=== PATIENT | male | born 1965 | race Caucasian/White ===

== ENCOUNTER 2024-12-06 08:16 | Emergency (ER) | payer OTHER, SELFPAY ==
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
[2024-12-06 08:28] VITALS: BP 141/95; PULSE 64; RESP 18; TEMP 36.9; O2SAT 100
--- OUTSIDE RECORDS SUMMARY | 2024-12-06 08:40 | XMS_ITS | Clinical Summary ---
Author Organization [facility] Address [address] [place] [address] Care Team Providers Care Gear Machine Operator General Name Role Phone Unavailable Primary Care Provider Unavailabl e Allergies Active Allergy Reactions Criticality Noted Date Comments Azithromycin Hives High 02/13/2019 Iodine Hives High 11/21/2008 Sulfa (Sulfonamide Antibiotics) Hives High 02/04 Medications predniSONE (DELTASONE) 10 mg tabletIndication s:Acute right-sided low back pain with right-sided sciatica Take 40 mg daily for 3 days then 30mg daily for 3 days then 20 mg daily for 3 days then 10 mg daily for 3 days 30 Tablet 10/16/2020 Active cyclobenzaprine (FLEXERIL) 10 mg tabletIndication s:Acute right-sided low back pain with right-sided sciatica Take 1 Tablet (10 mg) by mouth 3 times daily as needed for Spasm. 30 Tablet 10/16/2020 Active Active Problems No known active problems Social History Tobacco Use Types Packs/Day Years Used Date Smoking Tobacco: Never Sex and Gender Information Value Date Recorded Sex Assigned at Not on file Legal Sex Male 11:15 PM CDT Gender Identity Not on file Sexual Orientation Not on file Last Filed Vital Signs Vital Sign Reading Time Taken Comments Blood Pressure 159/103 10/16/2020 8:30 AM CDT Pulse 79 10/16/2020 8:30 AM CDT Temperature 36.8 C (98.3 F) 10/16/2020 8:30 AM CDT Respiratory Rate 16 10/16/2020 8:30 AM CDT Oxygen Saturation 98% 10/16/2020 8:30 AM CDT Inhaled Oxygen Concentration - - Weight 86.2 kg (190 lb) 10/16/2020 8:30 AM CDT Height 185.4 cm (6' 1) 10/16/2020 8:30 AM CDT Body Mass Index 25.07 10/16/2020 8:30 AM CDT Plan of Treatment Health Maintenance Due Date Last Done Comments DTAP/TDAP/TD VACCINES (1 - Tdap) 1984 HEPATITIS B VACCINES (1 of 3 - 19+ 3-dose series) 03/1985 COLORECTAL SCREENING 2010 Colorectal Cancer Screening 2010 FIT-DNA Q 3 years 2010 FIT/FOBT Q 1 year 2010 Flex Sig/CT Colonography Q 5 years 2010 ZOSTER VACCINE (1 of 2) 2015 INFLUENZA VACCINE (#1) 2024 Insurance CIGNA [id number]
--- OUTSIDE RECORDS SUMMARY | 2024-12-06 08:40 | XMS_ITS | Clinical Summary ---
Author Organization [address] Address [address] [place] [id number] Care Team Providers Care Mixing Place Supervisor Name Role Phone Aretha Sheth Primary Care Provider [phone] Barry Bernabe MD Unavailable [phone]- [phone] Allergies Active Allergy Reactions Criticality Noted Date Comments Atorvastatin Muscle pain Medium 07/17/2021 Azithromycin Hives High 02/13/2019 Iodinated Contrast Media Hives High 06/22/2021 Iodine Edema High 06/22/2021 Mold Eye irritation,Sneezing Low 07/17/2021 Sulfa (Sulfonamide Antibiotics) Hives High 06/22/2021 Medications sildenafiL (VIAGRA) 100 mg tabletIndication s:Erectile Dysfunction Take 1 tablet (100 mg total) by mouth as needed for erectile dysfunction 15 tablet 11 2 Active omeprazole (PriLOSEC) 20 mg capsuleIndicatio ns:Gastroesophag eal reflux disease, unspecified whether esophagitis present Take 1 capsule (20 mg total) by mouth 2 (two) times a day 60 capsule 2 Active Active Problems Problem Noted Date Diagnosed Date Tobacco use 06/22/2021 Esophageal reflux 06/22/2021 Hyperlipidemia, unspecified 06/22/2021 Assessment & Plan (07/17/2021 8:49 AM TRAVEL ADMINISTRATOR): Chronic and uncontrolled. Patient has an elevated ASCVD risk. Discussed with patient that it would be beneficial to help lower his cardiovascular risk to restart him on a statin. Patient voiced understanding of this. However, he would prefer to wait 6 months and recheck his cholesterol again. He is going to work hard on getting back into regular exercise and eating better. If there is no significant improvement after 6 months we can restart statin therapy. Will try pravastatin since atorvastatin caused muscle cramps. Patient was in agreement with this plan. Follow-up with me in 6 months. 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 Resolved Problems Problem Noted Date Diagnosed Date Resolved Date Pure hypercholesterolemia 11/21/2008 Immunizations Immunization Administration Dates Next Due Tdap 08/19/2022,12/03/2013 Surgical History Surgery Date Site/Laterality Comments EYE SURGERY 07/07/1972 - 07/06/1973 WRIST SURGERY 07/07/1990 - 07/06/1991 FRACTURE SURGERY 07/07/1996 - 07/06/1997 VASECTOMY 07/07/1997 - 07/06/1998 Medical History Medical History Date Comments GERD (gastroesophageal reflux disease) Asthma Family History Medical History Relation Name Comments Alzheimer's disease Father Omero Diabetes Father Omero Early Father Omero Hearing loss Father Omero Heart disease Father Omero Memory loss Father Omero Cancer Maternal Grandmother Laura Matt Memory loss Maternal Grandmother Laura Matt Alzheimer's disease Mother [place] Hearing loss Mother [place] Memory loss Mother [place] Miscarriages / Stillbirths Mother [place] No Known Problems Sister 1 Obesity Sister 2 Karolyn Relation Name Status Comments Father Omero Maternal Grandmother Laura Matt Mother [place] Sister 1 Alive Sister 2 Karolyn Social History Tobacco Use Types Packs/Day Years Used Date Smoking Tobacco: Every Day Cigarettes 1 33 Smokeless Tobacco: Never Tobacco Cessation:Ready to Q uit: No Comments:currently averages 1/2 pk per day AUDIT-C Answer Date Recorded Q1: How often do you have a drink containing alc ohol? Monthly or less 07/26/2021 Average Number of Drinks Not on file 022 Frequency of Binge Drinking Not on file 07/08 PHQ-2 Answer Date Recorded PHQ-2 Total Score (If total score is 3 or more points, staff should administer the PHQ-9) 0 06/22/2021 Personal Safety Answer Date Recorded Getting School Help Needed Not on file 06/21 Sex and Gender Information Value Date Recorded Sex Assigned at Not on file Legal Sex Male 11:45 AM TRAVEL ADMINISTRATOR Gender Identity Male 06/22/2021 7:40 AM TRAVEL ADMINISTRATOR Sexual Orientation Choose not to disclose 2020 7:40 AM TRAVEL ADMINISTRATOR Obstetrics History Last Filed Vital Signs Vital Sign Reading Time Taken Comments Blood Pressure 130/84 09/18/2021 7:55 AM CDT Pulse 68 09/18/2021 7:55 AM CDT Temperature 36.6 C (97.9 F) 09/18/2021 7:55 AM CDT Respiratory Rate 18 09/18/2021 7:55 AM CDT Oxygen Saturation 98% 09/18/2021 7:55 AM CDT Inhaled Oxygen Concentration - - Weight 94.7 kg (208 lb 12.8 oz) 09/18/2021 7:55 AM CDT Height 185.4 cm (6' 1) 09/18/2021 7:55 AM CDT Body Mass Index 27.55 09/18/2021 7:55 AM CDT Plan of Treatment Not on file Procedures Procedure Name Priority Date/Time Associated Diagnosis Comments PSA SCREEN Routine 06/28/2021 8:18 AM TRAVEL ADMINISTRATOR Screening for prostate cancer from Last 3 Months or Most Recently Relevant to Health Maintenance Results * PSA screen (06/28/2021 8:18 AM TRAVEL ADMINISTRATOR) PSA-Total 1.55 <=3.90 ng/mL STEVEN KONG Comment: Interpretive Data AGE SEX REFERENCE INTERVAL 0 minutes-150 years Female None 0 minutes-49 years Male None 50-59 years Male 0-3.90 60-69 years Male 0-5.40 70-79 years Male 0-6.20 80-150 years Male 0-6.20 Current interpretive data last revised 2018. Testing performed by: [facility], [address] [place] [address], [place]., [address] Blood 06/28/2021 8:18 AM TRAVEL ADMINISTRATOR 06/28/2021 10:40 AM TRAVEL ADMINISTRATOR Aretha JAMESON LAB BLOOD ORDERABLES Nimisha l Result STEVEN [address] [facility] Department [place] [address] from Last 3 Months or Most Recently Relevant to Health Maintenance Insurance [employer] CIGNA Care Teams Mixing Place Supervisor Relationship Specialty Start Date End Date Aretha Sheth PA [address] [place] [address] PCP - General Family Medicine 05/24/21 Barry Bernabe MD [address] [place] [address] Consulting Physician Family Medicine 05/24/21
--- OUTSIDE RECORDS SUMMARY | 2024-12-06 08:40 | XMS_ITS | Clinical Summary ---
Author Organization [facility] Address [address] [place] [address] Care Team Providers Care Art Preparator Name Role Phone Azalia Tavares RADIO BOARD OPERATOR-RECRUITER COORDINATOR Primary Care Provider Source Comments [facility],non-owned Affiliates and Associated Physician Practices is amultiple site organization consisting of ambulatory clinics and hospital sitesin [place], [place], [place] and [place]. This disclosure is being madepursuant to the Care Everywhere program and may not contain all information available regarding this patient. Last updated 18.[facility] Allergies Active Allergy Reactions Criticality Noted Date Comments Iodine 11/21/2008 Sulfa Drugs 11/21/2008 Medications * Be aware that medications may not be up to date on this document. Alwaysverify current medications with the patient. 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 Family History Medical History Relation Name Comments Diabetes Father Diabetes Mother Relation Name Status Comments Father Alive Mother Alive Social History Tobacco Use Types Packs/Day Years Used Date Smoking Tobacco: Every Day Cigarettes Cigars Alcohol Use Standard Drinks/Week Comments Yes 0 (1 standard drink = 0.6 oz pur e alcohol) occasional Sex and Gender Information Value Date Recorded Sex Assigned at Not on file Legal Sex Male 6:32 AM BASKET FILLER Gender Identity Not on file Sexual Orientation Not on file Last Filed Vital Signs Vital Sign Reading Time Taken Comments Blood Pressure 110/60 10/01/2009 7:16 AM CDT Pulse 72 10/01/2009 7:16 AM CDT Temperature 36.7 C (98 F) 10/01/2009 7:16 AM CDT Respiratory Rate 16 10/01/2009 7:16 AM CDT Oxygen Saturation 98% 10/01/2009 7:16 AM CDT Inhaled Oxygen Concentration - - Weight 90.7 kg (200 lb) 10/01/2009 6:39 AM CDT Height 188 cm (6' 2) 10/01/2009 6:39 AM CDT Body Mass Index 25.68 10/01/2009 6:39 AM CDT Plan of Treatment Health Maintenance Due Date Last Done Comments COLOGUARD (AGES 45-75) - COL ON CA SCREENING 1965 COLON MONITORING 1965 COLONOSCOPY - COLON CA SCREENING 1965 CT COLONOGRAPHY - COLON CA SCREENING 1965 Colorectal Cancer Screening 1965 FIT - COLON CA SCREENING 1965 FLEX SIG - COLON CA SCREENING 1965 LIPID TESTING 1965 HIV SCREENING 1980 HEPATITIS C SCREENING 07/11/1983 DTAP/TDAP/TD VACCINES (1 - Tdap) 1984 HEPATITIS B VACCINE (1 of 3 - 19+ 3-dose series) 1984 PNEUMOCOCCAL VACCINE 50+ (1 of 1 - PCV) 2015 ZOSTER VACCINE (1 of 2) 2015 COVID-19 VACCINE (1 - 2023-2 5 season) 2024 DEPRESSION SCREENING 07/07/2024 INFLUENZA VACCINE (Season Ended) 2025 HIB VACCINE Aged Out No longer eligi ble based on patient's age to complete this topic HPV VACCINE Aged Out No longer eligi ble based on patient's age to complete this topic MENINGOCOCCAL (Group B) VACC INE SHARED DECISION-MAKING Aged Out No longer eligibl e based on patient's age to complete this topic MENINGOCOCCAL GROUPS A/C/Y/W VACCINE Aged Out No longer eligible b ased on patient's age to complete this topic Insurance CIGNA CIGNA Care Teams Art Preparator Relationship Specialty Start Date End Date Azalia Tavares, RADIO BOARD OPERATOR-RECRUITER COORDINATOR [address] [place] [id number] PCP - General Nurse Practitioner 11/19/12
--- OUTSIDE RECORDS SUMMARY | 2024-12-06 08:40 | XMS_ITS | Referral Summary ---
Author Organization [address] Address [address] [place] [id number] Care Team Providers Care Look Out Tower Fire Watcher Name Role Phone Aretha Sheth Primary Care Provider [phone] Barry Bernabe MD Unavailable [phone]- [phone] Allergies Active Allergy Reactions Criticality Noted Date [...] 06/22/2021 Assessment & Plan (07/17/2021 8:49 AM PSYCHOLOGIST EDUCATIONAL): Chronic and uncontrolled. Patient has an elevated [...] eye exam: scheduled 07/2021 -Last MHA: N/A Arnol's neuroma 11/21/2008 Resolved Problems Problem Noted Date Diagnosed Date Resolved Date Pure hypercholesterolemia 11/21/2008 Immunizations Immunization Administration Dates Next Due Tdap 08/19/2022,12/03/2013 Social History Tobacco Use Types Packs/Day Years [...] on file Legal Sex Male 11:45 AM PSYCHOLOGIST EDUCATIONAL Gender Identity Male 06/22/2021 7:40 AM PSYCHOLOGIST EDUCATIONAL Sexual Orientation Choose not to disclose 2020 7:40 AM PSYCHOLOGIST EDUCATIONAL Last Filed Vital Signs Vital Sign Reading [...] Comments PSA SCREEN Routine 06/28/2021 8:18 AM PSYCHOLOGIST EDUCATIONAL Screening for prostate cancer from Last 3 Months or Most Recently Relevant to Health Maintenance Results * PSA screen (06/28/2021 8:18 AM PSYCHOLOGIST EDUCATIONAL) PSA-Total 1.55 <=3.90 ng/mL STEVEN KONG Comment: Interpretive Data AGE SEX REFERENCE INTERVAL 0 minutes-150 years Female None 0 minutes-49 years Male None 50-59 years Male 0-3.90 60-69 years Male 0-5.40 70-79 years Male 0-6.20 80-150 years Male 0-6.20 Current interpretive data last revised 2018. Testing performed by: [facility], [address] [place] [address]., [address] Blood 06/28/2021 8:18 AM PSYCHOLOGIST EDUCATIONAL 06/28/2021 10:40 AM PSYCHOLOGIST EDUCATIONAL us Aretha JAMESON LAB BLOOD ORDERABLES Nimisha l Result STEVEN [address] [facility] Department [place] [address] from Last 3 Months or Most Recently Relevant to Health Maintenance Insurance CIGNA CIGNA CIGNA Care Teams Look Out Tower Fire Watcher Relationship Specialty Start Date End Date Aretha Sheth PA [address] [place] [address] PCP - General Family Medicine 05/24/21 Barry Bernabe MD [address] [place] [address] Consulting Physician Family Medicine 05/24/21
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
== END 2024-12-06 09:15 | disposition home or self-care (01) ==
PROVIDERS: Emergency Provider Nurse Practitioner Family
DX: S90.31XA Contusion of right foot, initial encounter (principal); W20.8XXA Other cause of strike by thrown, projected or falling object, initial encounter; M19.071 Primary osteoarthritis, right ankle and foot
CPT/HCPCS: 73630; 99203; G0463